=== PATIENT | male | born 1980 | race Caucasian/White ===

== ENCOUNTER 2016-11-29 01:47 | Emergency (ER) | payer BC, OTHER, SELFPAY ==
[2016-11-29] MEDS ORDERED: Sodium Chloride 0.9% 1,000 ML IV ONE ×2 (01:53→02:53)
[2016-11-29] MEDS ORDERED: LORazepam 2 MG/ML MDV ONE (01:53)
[2016-11-29] MEDS ORDERED: Thiamine 200 MG/2 ML MDV IVPUSH STA (01:57)
[2016-11-29] MEDS ORDERED: LORazepam 2 MG/ML MDV IM ONE (01:59)
[2016-11-29] MEDS ORDERED: Bupivacaine 0.5% 30 ML SDV INJECT ONE (02:00)
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
[2016-11-29] MEDS ORDERED: Diphtheria,Pertussis(Acell),Tetanus Vaccine 0.5 ML SDV IM ONE (04:02)
[2016-11-29] MEDS ORDERED: Ondansetron 4 MG/2 ML SDV IVPUSH ONE (04:11)
[2016-11-29] MEDS ORDERED: Pantoprazole 40 MG Vial IVPUSH ONE (04:12)
[2016-11-29 05:33] VITALS: BP 150/69
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
== END 2016-11-29 05:10 | disposition home or self-care (01) ==
LOC: FB.ED 01:47
DX: S02.32XB Fracture of orbital floor, left side, initial encounter for open fracture (principal); S02.2XXB Fracture of nasal bones, initial encounter for open fracture; S01.81XA Laceration without foreign body of other part of head, initial encounter; S63.502A Unspecified sprain of left wrist, initial encounter; F10.129 Alcohol abuse with intoxication, unspecified; F17.210 Nicotine dependence, cigarettes, uncomplicated; Y90.0 Blood alcohol level of less than 20 mg/100 ml; Y04.0XXA Assault by unarmed brawl or fight, initial encounter
CPT/HCPCS: 12013; 36415; 70450; 70486; 72125; 73110; 80048; 80305; 85025; 90471; 90715; 96361; 96374; 96375; 99283; 99284; C9113; G0480; J2060; J2405; J3411; J7040